=== PATIENT | male | born 1965 | race African-American/Black ===

== ENCOUNTER → 2018-11-02 | Outpatient (CLI) | payer MEDICAID, MEDICARE ==
--- NOTE | 2018-11-02 15:33 | RAD ---
Renal ultrasound 11/02/2018 INDICATION: Acute renal injury COMPARISON STUDY: None FINDINGS: Sonographic evaluation of the kidneys was performed. Static images are submitted to PACS. The right kidney measures 10.3 x 5.5 x 5.3 cm. 2 small simple appearing cysts are seen within the right kidney one within the mid lateral kidney measuring 1.0 cm in diameter. Within the lower pole measuring 0.9 cm in diameter. Left kidney measures 10.7 x 4.7 x 5.6 cm. There is a simple appearing cyst in the lateral mid left kidney measuring 2.6 cm in maximal diameter. Punctate nonshadowing echogenic foci are noted seen in the left kidney, within the expected region of calyces. They are are poorly visualized, and the appearance is nonspecific. No other focal renal lesions are seen. No hydronephrosis is seen. The bladder is grossly unremarkable. Bilateral ureteral jets noted. The prostate appears to be enlarged measuring 4.1 x 5.9 x 3.9 cm. IMPRESSION: 1. Non-shadowing echogenic foci, possibly within the renal collecting system on the left. Differential considerations include nephrolithiasis, gas within the collecting system especially if there is been recent instrumentation or catheterization, or artifact. Consider CT imaging. 2. Prostamegaly 3. Simple appearing renal cysts as described Electronically signed by: Rashad Chang MD (11/02/2018 3:30 PM) [id number]
== END | disposition home or self-care (01) ==
LOC: US 09:42
PROVIDERS: ATTEND Internal Medicine Cardiovascular Disease
DX: N17.9 Acute kidney failure, unspecified (principal); N28.1 Cyst of kidney, acquired; N40.0 Benign prostatic hyperplasia without lower urinary tract symptoms; R79.89 Other specified abnormal findings of blood chemistry
CPT/HCPCS: 76770